=== PATIENT | male | born 1950 | race Caucasian/White ===

== ENCOUNTER 2020-07-02 07:14 | Outpatient (CLI) | payer MEDICARE, OTHER | END 2020-07-02 23:59 | disposition home or self-care (01) | LOC: LAB 07:14 | PROVIDERS: ATTEND Surgery | DX: Z01.812 Encounter for preprocedural laboratory examination (principal); Z20.822 Contact with and (suspected) exposure to COVID-19; K62.5 Hemorrhage of anus and rectum; K64.9 Unspecified hemorrhoids ==

== ENCOUNTER 2020-07-04 09:30 | Day surgery (SDC) | payer MEDICARE, OTHER ==
[2020-07-04] MEDS ORDERED: IV NORMAL SALINE 1000 ML BAG IV ONE (09:31)
[2020-07-04] MEDS ORDERED: IRR STERIL WATER FOR IRR 1000 ML BOTTLE IR ONE (09:31)
[2020-07-04] MEDS ORDERED: PROPOFOL 200 MG/20 ML BOTTLE IV ONE (09:31)
[2020-07-04] MEDS ORDERED: CEFAZOLIN 1 G VIAL IM ONE (09:31)
[2020-07-04] MEDS ORDERED: LIDOCAINE-MPF 2% 5 ML VIAL IJ ONE (09:31)
[2020-07-04 10:05] LABS: *BILIRUBIN,URIN 1+ (NEGATIVE); *CLARITY,URINE SLIGHTLY CLOUDY (CLEAR); *COLOR,URINE YELLOW (YELLOW); *KETONES,URINE NEGATIVE (NEGATIVE); *UROBILINOGEN,URINE 0.2 E.U./dl (NORMAL); LEUKOCYTE ESTERASE ,URINE NEGATIVE (NEGATIVE); NITRITE, URINE NEGATIVE (NEGATIVE); UGLUCOSE NEGATIVE (NEGATIVE)
[2020-07-04 10:18] LABS: BASOPHILS % (AUTO) 0.4 % (0.0-2.0); EOSINOPHILS # (AUTO) 0.1 K/uL (0.0-0.7); EOSINOPHILS % (AUTO) 2.3 % (0.0-7.0); HEMATOCRIT 44.9 % (36.7-47.1); HEMOGLOBIN 15.1 g/dL (12.5-16.3); LYMPHOCYTES # (AUTO) 1.3 K/uL (20.0-40.0); LYMPHOCYTES % (AUTO) 19.9 % (20.5-51.5); MEAN CORPUSCULAR HEMOGLOBIN 28.9 uug (23.8-33.4); MEAN CORPUSCULAR HGB CONC 34 g/dL (32.5-36.3); MEAN CORPUSCULAR VOLUME 85.6 fL (73.0-96.2); MONOCYTES # (AUTO) 0.6 K/uL (2.0-10.0); NEUTROPHILS # (AUTO) 4.5 K/uL (1.8-8.9); NEUTROPHILS % (AUTO) 68.4 % (38.5-71.5); PLATELET COUNT (AUTO) 240 K/uL (152-348); RED BLOOD CELL COUNT(AUTO) 5.24 MIL/uL (4.06-5.63); WHITE BLOOD COUNT (AUTO) 6.6 K/uL (3.6-10.2)
[2020-07-04 10:20] LABS: *BLOOD, URINE TRACE (NEGATIVE)
[2020-07-04 10:22] LABS: CREATININE 1.1 mg/dL (0.6-1.3); POTASSIUM 4.1 mmol/L (3.5-5.1)
[2020-07-04 10:27] LABS: TOTAL PROTEIN, SERUM 7.6 g/dL (6.4-8.2)
[2020-07-04] MEDS ORDERED: BUPIVACAINE PF 0.5% 30 ML VIAL ONE (11:48)
[2020-07-04 13:08] LABS: BACTERIA,URINE NONE SEEN /HPF (NONE SEEN); MUCUS,URINE FEW /LPF (0-FEW); RBC,URINE 0-3 /HPF (0-3); SQUAMOUS EPITHELIAL CELL,UR FEW /HPF (NONE SEEN); WBC,URINE 0-3 /HPF (0-3)
[2020-07-04] MEDS ORDERED: GABAPENTIN 300 MG CAPSULE PO ONE (14:30)
[2020-07-04] MEDS ORDERED: ACETAMINOPHEN 325 MG TABLET ONE ×2 (14:30→15:06)
[2020-07-04] MEDS ORDERED: ACETAMINOPHEN 325 MG TABLET PO ONE (14:30)
[2020-07-04] MEDS ORDERED: IBUPROFEN 800 MG TABLET PO ONE (14:30)
== END 2020-07-04 15:15 | disposition home or self-care (01) ==
LOC: DS 09:30
PROVIDERS: ATTEND Surgery
DX: K62.5 Hemorrhage of anus and rectum (principal); K64.9 Unspecified hemorrhoids; K44.9 Diaphragmatic hernia without obstruction or gangrene; R10.13 Epigastric pain; K21.00 Gastro-esophageal reflux disease with esophagitis, without bleeding; K64.8 Other hemorrhoids; K63.89 Other specified diseases of intestine; K31.89 Other diseases of stomach and duodenum; K63.5 Polyp of colon; K60.2 Anal fissure, unspecified; I10 Essential (primary) hypertension; Z79.899 Other long term (current) drug therapy; Z98.890 Other specified postprocedural states
CPT/HCPCS: 36415; 85025; 85730; 88313-TC; 88342; A4217; A4663; J0690; J3490; J7030; J7120

== ENCOUNTER 2022-08-04 08:59 | Outpatient (CLI) | payer MEDICARE, OTHER | END 2022-08-04 23:59 | disposition home or self-care (01) | LOC: LAB 08:59 | PROVIDERS: ATTEND Surgery | DX: Z01.812 Encounter for preprocedural laboratory examination (principal); Z20.822 Contact with and (suspected) exposure to COVID-19 ==

== ENCOUNTER 2022-08-06 05:54 | Inpatient (IN) | payer MEDICARE, OTHER ==
[~2022-08-06] VITALS: Ht 175.3 cm; Wt 91.6 kg
[2022-08-06 06:27] LABS: *BILIRUBIN,URIN NEGATIVE (NEGATIVE); *BLOOD, URINE NEGATIVE (NEGATIVE); *CLARITY,URINE CLEAR (CLEAR); *COLOR,URINE YELLOW (YELLOW); *KETONES,URINE NEGATIVE (NEGATIVE); *UROBILINOGEN,URINE 0.2 E.U./dl (NORMAL); LEUKOCYTE ESTERASE ,URINE NEGATIVE (NEGATIVE); NITRITE, URINE NEGATIVE (NEGATIVE); UGLUCOSE NEGATIVE (NEGATIVE)
[2022-08-06 06:28] LABS: HEMATOCRIT 39.9 % (36.7-47.1); MEAN CORPUSCULAR HEMOGLOBIN 28.6 uug (23.8-33.4); MEAN CORPUSCULAR VOLUME 84.3 fL (73.0-96.2); PLATELET COUNT (AUTO) 223 K/uL (152-348)
[2022-08-06] MEDS ORDERED: BUPIVACAINE/EPI PF 0.25% 10 ML VIAL IJ ONE (06:45)
[2022-08-06] MEDS ORDERED: CEFAZOLIN 2 G in IV DEXTROSE 5% 100 ML IV ONE (07:00)
[2022-08-06] MEDS ORDERED: LABETALOL HCL 100 MG/20 ML VIAL ONE (07:44)
[2022-08-06] MEDS ORDERED: MINERAL OIL/PETROLAT OPHT OINT 3.5 GM TUBE ONE (07:44)
[2022-08-06] MEDS ORDERED: ROCURONIUM BROMIDE 50 MG/5 ML VIAL ONE (07:45)
[2022-08-06] MEDS ORDERED: FAMOTIDINE. 20 MG/2 ML VIAL IV ONE (07:45)
[2022-08-06] MEDS ORDERED: FENTANYL CITRATE 100 MCG/2 ML AMPUL ONE (07:45)
[2022-08-06] MEDS ORDERED: DEXAMETHASONE SOD PHOSPHATE 4 MG INJ ONE (08:09)
[2022-08-06] MEDS ORDERED: GLYCOPYRROLATE 0.2 MG/ML VIAL ONE (08:09)
[2022-08-06] MEDS ORDERED: KETOROLAC TROMETHAMINE 30 MG INJ ONE (08:09)
[2022-08-06] MEDS ORDERED: ONDANSETRON 4 MG/2 ML VIAL ONE (08:09)
[2022-08-06] MEDS ORDERED: METOCLOPRAMIDE HCL 10 MG/2 ML VIAL ONE (08:09)
[2022-08-06] MEDS ORDERED: PROPOFOL 200 MG/20 ML BOTTLE ONE (08:09)
[2022-08-06] MEDS ORDERED: LIDOCAINE-MPF 2% 5 ML VIAL ONE (08:09)
[2022-08-06] MEDS ORDERED: KETAMINE HCL 500 MG/10 ML INJ ONE (08:23)
[2022-08-06] MEDS ORDERED: MAGNESIUM SULFATE/D5W 100 ML ONE (08:25)
[2022-08-06] MEDS ORDERED: GABAPENTIN 300 MG CAPSULE ONE (11:16)
[2022-08-06] MEDS ORDERED: ACETAMINOPHEN 325 MG TABLET ONE ×2 (11:17)
[2022-08-06] MEDS: ACETAMINOPHEN 325 MG TABLET PO SCH ×2 (12:00→22:09)
[2022-08-06] MEDS: CELECOXIB 200 MG CAPSULE PO SCH ×2 (12:00→20:42)
[2022-08-06] MEDS: GABAPENTIN 300 MG CAPSULE PO SCH ×2 (12:00→22:09)
[2022-08-06 13:05] VITALS: BP 108/74
[2022-08-06] MEDS ORDERED: HYDROMORPHONE 2 MG/1 ML DISP.SYRIN IV PRN (13:15)
[2022-08-06] MEDS ORDERED: HYDROMORPHONE 1 MG/1 ML DISP.SYRIN IV PRN (13:30)
[2022-08-06 13:49] VITALS: BP 127/77
--- NOTE | 2022-08-06 14:23 | NUR ---
PATIENT BERKLEY AND ORIENTED X4, FULL CODE WITH NKA. ADMITTED S/P LAPAROSCOPIC CHOLECYSTECTOMY CONVERTED TO OPEN CHOLECYSTECTOMY. HIGH FREQUENCY OF URINATION SECONDARY TO BPH. PAIN WELL MANAGED WITH PRN DILAUDID 1 MG IV PUSH Q 3HRS. KEPT CLEAN AND COMFORTABLE. WILL CONTINUE TO MONITOR.
[2022-08-06] MEDS: IV LACTATED RINGERS SOLUTION 1,000 ML IV PRN (14:40)
[2022-08-06] MEDS ORDERED: ATOR80TA PO (15:22)
[2022-08-06] MEDS ORDERED: CLOP75TA15 PO (15:28)
[2022-08-06] MEDS ORDERED: AMLO10TA59 PO (15:28)
[2022-08-06] MEDS ORDERED: ERGO500040 PO (15:28)
[2022-08-06] MEDS ORDERED: CYAN-51 PO (15:28)
[2022-08-06] MEDS ORDERED: TAMS-3 PO (15:28)
[2022-08-06] MEDS ORDERED: ATEN50TA PO (15:28)
[2022-08-06 16:00] VITALS: BP 134/81
[2022-08-06] MEDS ORDERED: TAMSULOSIN HCL 0.4 MG CAP.SR.24H PO SCH (19:00)
--- NOTE | 2022-08-06 19:30 | NUR ---
RECEIVED PATIENT AWAKE IN BED WITH FAMILY AT BEDSIDE. PATIENT IS A/O X4, MONGOLIAN SPEAKING BUT ABLE TO MAKE SIMPLE NEEDS KNOWN. C/O MILD PAIN 07/04. PATIENT C/O DISCOMFORT IN HIS BLADDER AND REQUESTING FOR HIS FLOMAX. FLOMAX GIVEN ORDERED. VS WNL. IVF INFUSING TO LEFT HAND #20 GAUGE. CALL LIGHT IN REACH. ALL NEEDS ATTENDED. WILL CONTINUE TO MONITOR AND ASSESS.
[2022-08-06 20:00] VITALS: BP 127/93
--- NOTE | 2022-08-06 21:20 | NUR ---
PATIENT AWAKE IN BED. C/O PAIN IN BLADDER AREA. PATIENTS BLADDER SCANNED WITH SCANNER AND RETENTION SHOWING 784cc OF URINE. CALLED OUT TO ZAYNAB TEJEDA NP FOR FURTHER ORDERS.
--- NOTE | 2022-08-06 22:00 | NUR ---
GRIMM CATHETER PLACED ORDERED. RECEIVED 1300cc OF CLEAR YELLOW URINE. PATIENT STATED HE FELT INSTANT RELIEF. WILL CONTINUE TO MONITOR AND ASSESS.
[2022-08-06] MEDS: LORAZEPAM 1 MG TABLET PO SCH (22:08)
[2022-08-07 04:00] VITALS: BP 136/76
[2022-08-07] MEDS: IV LACTATED RINGERS SOLUTION 1,000 ML IV PRN ×2 (04:21→17:46)
[2022-08-07] MEDS: GABAPENTIN 300 MG CAPSULE PO SCH ×3 (05:20→21:21)
[2022-08-07] MEDS: ACETAMINOPHEN 325 MG TABLET PO SCH ×3 (05:20→21:21)
--- NOTE | 2022-08-07 06:30 | NUR ---
PATIENT ASLEEP IN BED. EASILY AROUSABLE. C/O MILD PAIN. DENIES NEED FOR PAIN MEDICATION AT THIS TIME. IVF INFUSING WELL. CALL LIGHT IN REACH. ALL NEEDS ATTENDED. WILL CONTINUE TO MONITOR AND ASSESS.
[2022-08-07 06:48] LABS: HEMATOCRIT 38.2 % (36.7-47.1); MEAN CORPUSCULAR HEMOGLOBIN 28.4 uug (23.8-33.4); MEAN CORPUSCULAR VOLUME 84.8 fL (73.0-96.2); PLATELET COUNT (AUTO) 204 K/uL (152-348)
[2022-08-07 08:03] LABS: CARBON DIOXIDE 27 mmol/L (21-32); CHLORIDE 105 mmol/L (98-107); CREATININE 0.9 mg/dL (0.6-1.3); GLUCOSE 116 mg/dL (74-106); MAGNESIUM 2.1 mg/dL (1.8-2.4); PHOSPHOROUS 3.7 mg/dL (2.5-4.9); POTASSIUM 3.7 mmol/L (3.5-5.1); UREA NITROGEN, BLOOD 14 mg/dL (7-18)
[2022-08-07] MEDS: CLOPIDOGREL 75 MG TABLET PO SCH (08:17)
[2022-08-07] MEDS: CELECOXIB 200 MG CAPSULE PO SCH ×2 (08:18→21:21)
[2022-08-07] MEDS: ATORVASTATIN 40 MG TABLET PO SCH (08:18)
[2022-08-07] MEDS: CYANOCOBALAMIN 1,000 MCG TABLET PO SCH (08:18)
[2022-08-07] MEDS: ATENOLOL 50 MG TABLET PO SCH (08:25)
[2022-08-07] MEDS: AMLODIPINE 10 MG TABLET PO SCH (08:28)
[2022-08-07 11:17] VITALS: BP 120/71
[2022-08-07] MEDS: DOCUSATE SODIUM 100 MG CAPSULE PO SCH ×2 (11:58→21:21)
[2022-08-07] MEDS: PIPERACILLIN SODIUM/TAZOBACTAM 3.375 G in IV DEXTROSE 5% 50 ML IV SCH ×2 (13:26→22:11)
--- NOTE | 2022-08-07 16:49 | NUR ---
Salmeron cath removed in AM as it was ordered. Pt. stated that is able to urinate with no difficulty and urine noted in urinal during the shift. No c/o pain. Compliance with the care given. Will keep monitoring the pt.
[2022-08-07 16:53] VITALS: BP 112/60
[2022-08-07 20:00] VITALS: BP 123/78
[2022-08-07] MEDS ORDERED: TAMSULOSIN HCL 0.4 MG CAP.SR.24H PO SCH (21:00)
[2022-08-07] MEDS: LORAZEPAM 1 MG TABLET PO SCH (21:21)
[2022-08-08] MEDS ORDERED: MORPHINE SULFATE 2 MG/1 ML DISP.SYRIN IV PRN (00:45)
[2022-08-08] MEDS ORDERED: ONDANSETRON 4 MG/2 ML VIAL IV PRN (00:45)
[2022-08-08 04:00] VITALS: BP 139/82
[2022-08-08] MEDS: GABAPENTIN 300 MG CAPSULE PO SCH ×2 (06:01→13:53)
[2022-08-08] MEDS: ACETAMINOPHEN 325 MG TABLET PO SCH ×2 (06:01→13:53)
[2022-08-08] MEDS: PIPERACILLIN SODIUM/TAZOBACTAM 3.375 G in IV DEXTROSE 5% 50 ML IV SCH (06:15)
[2022-08-08 06:34] LABS: HEMATOCRIT 36.5 % (36.7-47.1); MEAN CORPUSCULAR HEMOGLOBIN 28.8 uug (23.8-33.4); MEAN CORPUSCULAR VOLUME 84.6 fL (73.0-96.2); PLATELET COUNT (AUTO) 193 K/uL (152-348)
--- NOTE | 2022-08-08 06:39 | NUR ---
SPOKE WITH DR. LOZANO AND RECEIVED VERBAL ORDERS FOR PATIENT TO BE DISCHARGED HOME AFTER BREAKFAST. PATIENT IS TO FOLLOW UP WITH DR. LOZANO AT HIS OFFICE ON Thursday08/12/22 AT 11AM. MD ALSO WANTS PATIENT TO CONTINUE TYLENOL 650MG PO Q8, NEURONTIN 300MG PO Q8 AND CELEBREX 200MG PO Q12. WILL ENDORSE TO ON-COMING NURSE TO CALL HIS OFFICE TO CALL IN RX. ALL NEEDS ATTENDED.
[2022-08-08 06:58] LABS: CREATININE 0.9 mg/dL (0.6-1.3); MAGNESIUM 1.8 mg/dL (1.8-2.4); PHOSPHOROUS 3.8 mg/dL (2.5-4.9); POTASSIUM 3.5 mmol/L (3.5-5.1)
[2022-08-08] MEDS ORDERED: PANTOPRAZOLE SODIUM 40 MG TABLET.DR PO SCH (07:00)
[2022-08-08] MEDS: ATORVASTATIN 40 MG TABLET PO SCH (08:25)
[2022-08-08] MEDS: CYANOCOBALAMIN 1,000 MCG TABLET PO SCH (08:25)
[2022-08-08] MEDS: DOCUSATE SODIUM 100 MG CAPSULE PO SCH (08:25)
[2022-08-08] MEDS: CELECOXIB 200 MG CAPSULE PO SCH (08:25)
[2022-08-08] MEDS: CLOPIDOGREL 75 MG TABLET PO SCH (08:25)
[2022-08-08] MEDS: ATENOLOL 50 MG TABLET PO SCH (08:26)
[2022-08-08] MEDS: AMLODIPINE 10 MG TABLET PO SCH (08:28)
[2022-08-08 11:39] VITALS: BP 130/72
[2022-08-08] MEDS ORDERED: GABA300C PO (11:53)
[2022-08-08] MEDS ORDERED: HYDR-3972 PO (11:53)
[2022-08-08] MEDS ORDERED: DOCU-141 PO (11:53)
[2022-08-08] MEDS ORDERED: CELE200C PO (11:53)
[2022-08-08] MEDS ORDERED: FAMO10TA41 PO (13:19)
--- NOTE | 2022-08-08 15:02 | NUR ---
Pt. discharged home and was picked up by his daughter. Pt. was sent down with a wheelchair and assist of a HADOOP APPLICATION DEVELOPER. Walker provided for home supply. IV line removed. All necessary document signed. Personal belonging returned to the patient.
== END 2022-08-08 03:05 | disposition home health service (06) | DRG 416 ==
LOC: DS 05:54 → MEDSURG3 12:51
PROVIDERS: ADMIT Surgery; ATTEND Nurse Practitioner Acute Care
PROC: 0FT40ZZ Resection of Gallbladder, Open Approach (ICD-10-PCS; principal; 2022-08-06)
PROC: 0FJ44ZZ Inspection of Gallbladder, Percutaneous Endoscopic Approach (ICD-10-PCS; 2022-08-06)
PROC: 0DNU4ZZ Release Omentum, Percutaneous Endoscopic Approach (ICD-10-PCS; 2022-08-06)
DX: K80.10 Calculus of gallbladder with chronic cholecystitis without obstruction (principal); K66.0 Peritoneal adhesions (postprocedural) (postinfection); I10 Essential (primary) hypertension; N40.1 Benign prostatic hyperplasia with lower urinary tract symptoms; R33.8 Other retention of urine; Z82.49 Family history of ischemic heart disease and other diseases of the circulatory system; Z80.0 Family history of malignant neoplasm of digestive organs; Z87.19 Personal history of other diseases of the digestive system; E78.5 Hyperlipidemia, unspecified; Z95.5 Presence of coronary angioplasty implant and graft; Z79.02 Long term (current) use of antithrombotics/antiplatelets; Z79.899 Other long term (current) drug therapy
CPT/HCPCS: 36415; 71045; 83735; 84100; 85025; A4663; G0378; J0690; J1100; J1170; J1885; J2405; J2543; J2765; J3010; J3475; J3490; J7120

== ENCOUNTER 2023-01-09 07:36 | Day surgery (SDC) | payer MEDICARE, OTHER ==
[~2023-01-09 07:36] MED LIST: AMLO10TA59 PO; ATEN50TA PO; ATOR80TA PO; CELE200C PO; CLOP75TA15 PO; CYAN-51 PO; DOCU-141 PO; ERGO500040 PO; FAMO10TA41 PO; GABA300C PO; HYDR-3972 PO; TAMS-3 PO
[2023-01-09] MEDS ORDERED: LIDOCAINE-MPF 2% 5 ML VIAL ONE (08:58)
[2023-01-09] MEDS ORDERED: GLYCOPYRROLATE 0.2 MG/ML VIAL ONE (08:58)
[2023-01-09] MEDS ORDERED: PROPOFOL 200 MG/20 ML BOTTLE ONE (08:58)
[2023-01-09] MEDS ORDERED: SIMETHICONE 40 MG/0.6 ML, 30ML BOTTLE ONE (08:58)
[2023-01-09] MEDS ORDERED: BUPIVACAINE/EPI PF 0.25% 10 ML VIAL IJ ONE (09:36)
[2023-01-09] MEDS ORDERED: LIDOCAINE HCL 1% 20 ML VIAL ONE (09:36)
[2023-01-09] MEDS ORDERED: ACETAMINOPHEN 325 MG TABLET ONE ×2 (11:20)
[2023-01-09] MEDS ORDERED: GABAPENTIN 300 MG CAPSULE ONE (11:21)
[2023-01-09] MEDS ORDERED: ACETAMINOPHEN 325 MG TABLET PO ONE (12:00)
[2023-01-09] MEDS ORDERED: CELECOXIB 200 MG CAPSULE PO ONE (12:00)
[2023-01-09] MEDS ORDERED: GABAPENTIN 300 MG CAPSULE PO ONE (12:00)
[2023-01-09 12:23] VITALS: TEMP 97.8
== END 2023-01-09 12:23 | disposition home or self-care (01) ==
LOC: DS 07:36
PROVIDERS: ATTEND Surgery
DX: K59.00 Constipation, unspecified (principal); R19.7 Diarrhea, unspecified; K62.5 Hemorrhage of anus and rectum; K64.8 Other hemorrhoids; K62.1 Rectal polyp; I25.10 Atherosclerotic heart disease of native coronary artery without angina pectoris; I10 Essential (primary) hypertension; M19.90 Unspecified osteoarthritis, unspecified site; E11.9 Type 2 diabetes mellitus without complications; I48.91 Unspecified atrial fibrillation; Z86.010 Personal history of colon polyps; Z79.899 Other long term (current) drug therapy; Z98.890 Other specified postprocedural states
CPT/HCPCS: 45380; 46260; 71045; 82962; 88305; J3490; J7040; A4649; A4663; J7120